=== PATIENT | female | born 1950 | race Caucasian/White ===

== ENCOUNTER 2017-01-02 10:10 | Emergency (ER) | payer MEDICAID, OTHER ==
[~2017-01-02] VITALS: Ht 167.6 cm; Wt 85.0 kg
[2017-01-02 10:24] VITALS: Ht 167.6 cm; Wt 85.0 kg
[2017-01-02] MEDS ORDERED: ONDANSETRON (ODT) 4 MG TAB ODT STA (12:40)
[2017-01-02] MEDS ORDERED: HYDROCODONE/APAP (10/325) TAB PO ONE (13:00)
--- NOTE | 2017-01-02 13:19 | RADRPT ---
PROCEDURE: Right knee radiographs. CLINICAL INDICATION: Right knee pain. TECHNIQUE: Three views. Weight bearing. Frontal, lateral, and oblique. COMPARISON: No prior studies are available for comparison. FINDINGS: There is no fracture or dislocation. The soft tissues are normal. The articular surfaces are intact. There is no lytic or blastic lesion. There is no radiopaque foreign body. IMPRESSION: 1. Unremarkable images of the right knee. RPTAT: QQ .Aramis Kincaid MD, MD Date Time Electronically viewed and signed by .Aramis Kincaid MD, on 01/02/2017 13:18 .R/
[2017-01-02] MEDS ORDERED: HYDR-906 PO (13:24)
[2017-01-02] MEDS ORDERED: NAPR-260 PO (13:24)
[2017-01-02 14:00] VITALS: BP 136/68; PULSE 70; RESP 20; TEMP 98.2
--- NOTE | 2017-01-02 14:12 | ERD ---
ER Documentation Chief Complaint Date/Time DATE: 01/02/17 TIME: 14:05 Chief Complaint Complains of right knee pain HPI This patient is a 66-year-old female with past medical history of type 2 diabetes, hypertension, and high cholesterol presenting to the emergency department for right knee injury which occurred yesterday at 5 PM. The patient slipped with her right foot causing her to twist her right knee. She currently rates her pain a 5 out of 10 in severity and it is exacerbated with ambulation and movement. The patient is taken no medication at home for relief of symptoms. No other signs or symptoms to report at this time. There is no loss of consciousness or head injury. ROS All systems reviewed and are negative except as per history of present illness. Medications Home Meds Active Scripts Naproxen* (Naprosyn*) 500 Mg Tablet, 500 MG PO BID Y for PAIN AND/OR INFLAMMATION, #20 TAB Prov:MIRZA SORENSEN PA-C 01/02/17 Hydrocodone/Acetaminophen (Maribel 5-325 Tablet) 1 Each Tablet, 1 TAB PO Q6H Y for PAIN, #7 TAB Prov:MIRZA SORENSEN PA-C 01/02/17 FmHx Noncontributory for chief complaint. Physical Exam Vitals Vital Signs Date Time Temp Pulse Resp B/P Pulse Ox O2 Delivery O2 Flow Rate FiO2 01/02/17 10:24 98.3 77 20 140/68 98 Physical Exam Const: The patient is in a wheelchair but is resting comfortably in no acute distress. Head: Atraumatic Eyes: Normal Conjunctiva ENT: Normal External Ears, Nose and Mouth. Neck: Full range of motion..~ No meningismus. Resp: Clear to auscultation bilaterally Cardio: Regular rate and rhythm, no murmurs Abd: Soft, non tender, non distended. Normal bowel sounds Skin: No petechiae or rashes Back: No midline or flank tenderness Ext: There is tenderness to palpation of the medial and lateral joint line of the right knee with mild associated edema but no ecchymosis or signs of joint effusion. Range of motion is limited secondary to pain. Neur: Awake and alert Psych: Normal Mood and Affect Results 24 hrs Current Medications Medications (Trade) Dose Ordered Sig/Rosio Route PRN Reason Start Time Stop Time Status Last Admin Dose Admin Acetaminophen/ Hydrocodone Bitart (Maribel (10/325)) 1 tab ONCE ONCE PO 01/02/17 13:00 01/02/17 13:01 DC 01/02/17 12:48 Ondansetron HCl (Zofran Odt) 4 mg ONCE STAT ODT 01/02/17 12:40 01/02/17 12:42 DC 01/02/17 12:48 Procedures/MDM 66-year-old female presents to the emergency department secondary to complaints of right knee pain after injury yesterday. On physical examination the patient' s vitals are within normal limits. There is tenderness palpation of the medial and lateral joint line. There is no sign of joint effusion and I have low suspicion for septic joint, septicemia, septic arthritis, or other emergent conditions. X-ray negative for acute fracture and was interpreted by radiologist. Results were shared with the patient and she demonstrates good understanding. The patient was given an Dany wrap in the emergency department. The patient was treated with p.o. Maribel in the department and was feeling improved on reevaluation. The patient is to have close follow-up with her primary care physician and orthopedics. Information was given to do so. Strict ER return precautions were discussed with the patient. The patient was given crutches with training in the emergency department. The patient was hemodynamically stable prior to discharge. Departure Diagnosis: Primary Impression: Knee pain, acute Laterality: right Qualified Code: M25.561 - Acute pain of right knee Additional Impression: Knee injury Encounter type: initial encounter Laterality: right Qualified Code: S89.91XA - Knee injury, right, initial encounter Condition: Fair Patient Instructions: Knee Sprain [facility] Usted se echeverria hecho un examen mdico de control que le indica que no est en jodi condicin que requiera tratamiento urgente en el Departamento de Emergencia. Un estudio ms profundo y el tratamiento de hector condicin pueden esperar sin ningn riesgo hasta que usted sea atendida/o en el consultorio de hector mdico o jodi cl mikal. Es responsabilidad suya arreglar jodi karolina para el seguimiento del mackenzie. MANEJO DE CONDICIONES NO URGENTES EN EL FUTURO 1) Si usted tiene un mdico de atencin primaria: Usted debera llamar a hector mdico de atencin primaria antes de venir al departamento de emergencia. Despus de las horas de consultorio, hector doctor o hector asociado/a est disponible por telfono. El mdico o enfermero de gregor en el servicio telefnico puede asesorarle por marc medio para atender el problema, o mackenzie contrario se puede programar jodi karolina. 2) Si usted no tiene un mdico de atencin primaria: Llame al mdico o clnica de referencia que aparece abajo luz las horas de consultorio para hacer jodi karolina para que le vean. CLINICAS: [facility] [phone] [facility] [phone] [place] [phone] [place] [id number] [phone] [place] [id number] [phone] [facility] [phone] [address] [facility] Hours: Mon-Fri 9:00 AM - 5:00 PM Additional Instructions: No mas mejor en 2-3 rausch, regresar. Mas peor en 24 horas, regresear rapidamente. Ir a doctor primario in 5-7 rausch. Usar instrucciones cuando herminia medicamento. MIRZA SORENSEN PA-C January 02, 2017 14:12
== END 2017-01-02 14:00 | disposition home or self-care (01) ==
LOC: FTE 10:10
DX: S89.91XA Unspecified injury of right lower leg, initial encounter (principal); E11.9 Type 2 diabetes mellitus without complications; I10 Essential (primary) hypertension; X50.1XXA Overexertion from prolonged static or awkward postures, initial encounter; Y92.9 Unspecified place or not applicable
CPT/HCPCS: 73562; Z7502; Z7610